=== PATIENT | female | born 1935 | race Caucasian/White ===

== ENCOUNTER 2017-04-29 17:01 | Inpatient (IN) | payer MEDICARE, OTHER ==
[2017-04-29] MEDS ORDERED: Ondansetron ODT 4 MG TAB PO PRN (17:45)
[2017-04-29] MEDS ORDERED: Acetaminophen 500 MG TAB PO PRN (17:49)
[2017-04-29] MEDS ORDERED: traMADol HCl 50 MG TAB PO PRN (17:49)
[2017-04-29 18:47] VITALS: BMI 31.9
[2017-04-29] MEDS: Acetaminophen/Codeine 30-300mg Tablet PO PRN (19:43)
[2017-04-29] MEDS: Apixaban 5 MG TAB PO SCH (20:35)
[2017-04-29] MEDS: Famotidine 20 MG TAB PO SCH (20:35)
[2017-04-29] MEDS ORDERED: SENNOSIDES 8.6 MG PO SCH (21:00)
[2017-04-29] MEDS ORDERED: Metoprolol Tartrate 50 MG TAB PO SCH (21:00)
[2017-04-30 05:37] LABS: Band 2 % (5-11); Eosinophils 1 % (0-10); Hemoglobin 9.4 g/dL (12.0-16.0); Lymphocytes 14 % (21-51); MDiff Complete? YES; Mean Corpuscular HGB CONC 32.6 g/dL (32.0-36.0); Mean Corpuscular Volume 98.1 fl (81.0-99.0); Mean Platelet Volume 6.1 fL (7.4-10.4); Monocytes 5 % (0-10); Neutrophil 75 % (42-75); PLT Morphology Comment Appears Adequate; Platelet Count 350 thou/uL (130-400); RBC Distribution Width 13.9 % (11.5-14.5); RBC Morphology Normal; Reactive Lymphocytes 3 % (0-10); Red Blood Cell (RBC) Count 2.94 mill/uL (4.20-5.40)
[2017-04-30 05:42] LABS: ALT (SGPT) 17 U/L (8-55); AST (SGOT) 19 U/L (5-34); Albumin 3.1 g/dL (3.4-4.8); Alkaline Phosphatase 72 U/L (40-150); Anion Gap 12 mmol/L (10-20); BUN (Urea Nitrogen) 12 mg/dL (9.8-20.1); Bilirubin, Total 0.6 mg/dL (0.2-1.2); Calc. Creatinine Clearance 86 mL/min (70-130); Carbon Dioxide 26 mmol/L (23-31); Chloride 99 mmol/L (98-107); Estimated GFR-MDRD 77; Globulin 2.5 g/dL (2.4-3.5); Glucose 106 mg/dL (83-110); Potassium 3.6 mmol/L (3.5-5.1); Protein, Total 5.6 g/dL (6.0-8.3); Sodium 133 mmol/L (136-145)
[2017-04-30 05:43] LABS: Manual Diff?? YES; White Blood Cell (WBC) Count 13.5 thou/uL (4.8-10.8)
[2017-04-30] MEDS ORDERED: Loratadine 10 MG TAB PO PRN (06:41)
[2017-04-30] MEDS ORDERED: ALPRAZolam 0.25 MG TAB PO PRN (06:42)
--- NOTE | 2017-04-30 08:17 | HP ---
HISTORY OF PRESENT ILLNESS: A very pleasant 81-year-old white female with a history of recent resec tion and replacement with Dacron graft with thoracic aneurysm by Dr. Clark Carvajal at [facility] in [place]. She had no complications except for recurrent atrial fibrillation despite treatment w ith Multaq and amiodarone. She did not have any renal dysfunction, congestive heart failure, or ang roya. She has had a long history of hypertension and new onset of atrial fibrillation in the last ye ar, which has been rate controlled and anticoagulated, but could not be cardioverted, and was found to have a significantly dilated left atrium. She had been doing fairly well on medications of metop rolol 50 mg twice daily, magnesium oxide 400 mg daily, valacyclovir 500 mg 2 tablets every 12 hours, Zaynab 180 mg daily, multivitamins, Tylenol as needed, and Voltaren Gel to the knees as needed as well as furosemide 40 mg daily, alprazolam 0.25 every 6 hours as needed, and Eliquis 5 mg twice ivan y. She was continued on these medicines postop and is [facility] for [facility] therapy . 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 She also has a history of cholecystectomy, tonsillectomy, laminectomy, hysterectomy, right total kne e replacement, ischemic bowel resection in 2015. 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 She also has the above-me ntioned history of hypertension and DJD. FAMILY MEDICAL HISTORY: Positive for her father with Parkinson's disease, coronary artery disease, and glaucoma; mother with coronary disease; both at age greater than 90. Sibling alive with gl aucoma and a son alive with hypertension. SOCIAL HISTORY: She lives alone. She is a nonsmoker. She is . ALLERGIES: She is allergic to DEMEROL that makes her feel woozy, headache. REVIEW OF SYSTEMS: HEENT: Somewhat agitated, but nervous, but no headaches or dizziness, change in vision or hearing, hoarseness or dysphagia. Pulmonary: She denies cough, sputum production, pneum onia, asthma, tuberculosis. Cardiovascular: She denies chest pain, orthopnea, paroxysmal nocturnal dyspnea. She has had some shortness of breath and edema prior to the surgery, now does have some e noel, but no real orthopnea, but is moving slowly secondary to sternal precautions. Gastrointestina l: She denies nausea, vomiting, diarrhea, constipation, abdominal pain. Genitourinary: She denies dysuria, hematuria, nocturia. Musculoskeletal: She denies stiffness. Does have significant roderick ess in her knees and shoulders. Genitourinary: Denies dysuria, hematuria, nocturia. Neurologic: Denies localized numbness or weakness in arms or extremities. PHYSICAL EXAMINATION: GENERAL: Patient is an elderly white female, alert, oriented, lucid, in no acute distress. VITAL SIGNS: Showed her to have blood pressure of 164/85, pulse 113, respirations 20, O2 saturation is 92%, afebrile. HEENT: Pupils are equal, round, and reactive to light and accommodation. Sclerae are anicteric. C onjunctivae are pale. Oral mucous membranes well hydrated. NECK: Supple. JVP is not elevated. Carotids 2+ and equal without bruits. LUNGS: Clear with some mild decreased breath sounds in the bases. CARDIAC EXAMINATION: Showed an irregularly regular rhythm. No gallops or murmurs. PMI in the fift h intercostal space midclavicular line. There is a healing midline sternotomy scar. ABDOMEN: Soft and nontender with no masses or organomegaly. SKIN/EXTREMITIES: Do show 2+ edema. No clubbing or cyanosis. There is crepitance and stiffness in the knees. NEUROLOGICAL: Shows no focal findings. LABORATORY DATA: Shows a white count 13,500, hematocrit 28, hemoglobin 9, sodium 133, potassium 3.6 , chloride 99, bicarbonate 26, BUN 12, creatinine 0.73, glucose 106, calcium 9.0, total bilirubin 0. 6, AST 19, ALT 17, protein 5.6, albumin 3.1. ASSESSMENT: A 81-year-old white female with a history of hypertension, atrial fibrillation, and a f inding of thoracic aneurysm, asymptomatic, who has undergone resection with no complications, and is transferred back for physical therapy and occupational therapy. She is under sternal precautions p er her cardiac surgeon. She is back on her routine medications of metoprolol for control of rate an d Eliquis for anticoagulation of her atrial fibrillation. She will be restarted back on her valacyc lovir, alprazolam, and we will have her furosemide increased to 40 twice daily from once daily to se e if we can diurese some of her postoperative edema.
[2017-04-30] MEDS ORDERED: Furosemide 40 MG TAB PO SCH (09:00)
[2017-04-30] MEDS ORDERED: Furosemide 20 MG TAB PO SCH (09:00)
[2017-04-30] MEDS: Furosemide 40 MG TAB PO SCH ×2 (09:41→13:35)
[2017-04-30] MEDS: Multivitamin W/ Minerals 1 TAB PO SCH (09:41)
[2017-04-30] MEDS: Famotidine 20 MG TAB PO SCH ×2 (09:42→21:53)
[2017-04-30] MEDS: Apixaban 5 MG TAB PO SCH ×2 (09:42→21:53)
[2017-04-30] MEDS: Polyethylene Glycol 3350 17 GM Packet PO SCH (09:43)
[2017-04-30] MEDS: FEXOFENADINE 180 MG PO SCH ×2 (12:35→20:16)
[2017-04-30] MEDS: Senokot S 8.6-50 MG TAB PO SCH (21:53)
--- NOTE | 2017-05-01 08:18 | PRG ---
DATE OF SERVICE: 05/01/2017 SUBJECTIVE: The patient is sitting up in the chair, feels better, rested better last night, has bee n cooperating with therapy, but is still having limitations secondary to tachycardia, tachypnea and hypoxemia with exertion. These are relieved quickly by rest and not associated with any chest pain. She has had no fever, chills or cough. OBJECTIVE: VITAL SIGNS: Temperature 98, pulse is 113, respirations 18, O2 sat is 94% at rest, but drops to 87% with exercise, blood pressure 127/70. LUNGS: Lungs show good breath sounds, no rales, rhonchi or wheezes. CARDIAC: Cardiac examination shows an irregular regular rhythm. SKIN AND EXTREMITIES: Skin and extremities show 3+ edema to the knees. No clubbing or cyanosis. The patient is urinating, but intake and output not being done at this time. ASSESSMENT: 1. Status post thoracic aortic aneurysm repair. No evidence of complications, healing well. 2. Persistent atrial fibrillation with limitation of exercise capability on metoprolol. 3. Fluid retention secondary to atrial fibrillation and diastolic congestive heart failure on furos emide 40 twice daily with good urine output, not being measured, but with persistent edema. PLAN: Strict intake and output. Repeat base met profile in the a.m. Continue Lasix 40 twice daily . Continue metoprolol 75 twice daily and may need to increase dose.
[2017-05-01] MEDS: Apixaban 5 MG TAB PO SCH ×2 (08:47→20:27)
[2017-05-01] MEDS: Famotidine 20 MG TAB PO SCH ×2 (08:47→20:27)
[2017-05-01] MEDS: Furosemide 40 MG TAB PO SCH ×2 (08:48→14:31)
[2017-05-01] MEDS: Multivitamin W/ Minerals 1 TAB PO SCH (08:48)
[2017-05-01] MEDS: Polyethylene Glycol 3350 17 GM Packet PO SCH (08:51)
--- NOTE | 2017-05-01 09:47 | RAD ---
PORTABLE CHEST: DATE: 05/01/17. PROVIDED CLINICAL HISTORY: Shortness of breath. FINDINGS: Comparison is made with the study dated 05/10/15. The cardiac silhouette appears enlarged. There i s opacity involving the right aspect of the mediastinum superiorly which appears similar to prior st udies. Median sternotomy changes are again seen. No focal consolidation, pleural fluid, or pneumot horax apparent. IMPRESSION: Stable radiographic appearance of the chest. POS: [facility]
[2017-05-01] MEDS: FEXOFENADINE 180 MG PO SCH (20:26)
[2017-05-01] MEDS: Senokot S 8.6-50 MG TAB PO SCH (20:27)
[2017-05-02 06:00] LABS: Anion Gap 13 mmol/L (10-20); BUN (Urea Nitrogen) 14 mg/dL (9.8-20.1); Calc. Creatinine Clearance 84 mL/min (70-130); Calcium 8.2 mg/dL (7.8-10.44); Carbon Dioxide 27 mmol/L (23-31); Chloride 100 mmol/L (98-107); Estimated GFR-MDRD 75; Glucose 94 mg/dL (83-110); Potassium 3.4 mmol/L (3.5-5.1); Sodium 137 mmol/L (136-145)
--- NOTE | 2017-05-02 09:19 | PRG ---
DATE OF SERVICE: 05/02/2017 SUBJECTIVE: The patient was sitting up in the chair, feels well. No shortness of breath or chest p ain. She had been cooperating well with therapy, still having some edema of her legs and is complai lurdes that there is too much salt in her diet. OBJECTIVE: VITAL SIGNS: Shows her blood pressure is 116/67, pulse 103 and irregular, respirations 20, O2 sats 94% on room air, afebrile. Chest x-ray yesterday showed stable cardiomegaly with right pleural effusion, minimal changes from p revious x-ray. LABORATORY: Sodium was 137, potassium down slightly at 3.4, chloride 100, bicarbonate 27, BUN is 14 , creatinine 0.75, glucose 94, calcium 8.2. SKIN AND EXTREMITIES: Show 2+ edema. LUNGS: Lungs appear to be clear with only decreased breath sounds in the right base, sternotomy inc ision healing well. CARDIAC: Shows an irregularly irregular rhythm. ASSESSMENT: 1. Stable atrial fibrillation with rate control and anticoagulation. 2. Resolving thoracic aortic aneurysm repair. 3. Stable peripheral edema. 4. Mild congestive heart failure. PLAN: 1. Continue furosemide 40 mg twice daily. 2. Continue metoprolol 75 twice daily. 3. Continue apixaban 5 twice daily. 4. Continue PT, OT. 5. Discontinue heart healthy diet and will start on strict low salt diet.
[2017-05-02] MEDS: Multivitamin W/ Minerals 1 TAB PO SCH (09:20)
[2017-05-02] MEDS: Famotidine 20 MG TAB PO SCH ×2 (09:20→20:47)
[2017-05-02] MEDS: Apixaban 5 MG TAB PO SCH ×2 (09:20→20:47)
[2017-05-02] MEDS: Furosemide 40 MG TAB PO SCH ×2 (09:20→14:10)
[2017-05-02] MEDS: Polyethylene Glycol 3350 17 GM Packet PO SCH (09:35)
[2017-05-02] MEDS: FEXOFENADINE 180 MG PO SCH (20:45)
[2017-05-02] MEDS: Senokot S 8.6-50 MG TAB PO SCH (20:47)
[2017-05-03 05:38] LABS: Hemoglobin 8.4 g/dL (12.0-16.0); Platelet Count 367 thou/uL (130-400)
[2017-05-03] MEDS: Multivitamin W/ Minerals 1 TAB PO SCH (09:12)
[2017-05-03] MEDS: Furosemide 40 MG TAB PO SCH ×2 (09:13→14:47)
[2017-05-03] MEDS: FEXOFENADINE 180 MG PO SCH ×2 (09:13→21:56)
[2017-05-03] MEDS: Apixaban 5 MG TAB PO SCH ×2 (09:13→21:51)
[2017-05-03] MEDS: Polyethylene Glycol 3350 17 GM Packet PO SCH (09:13)
[2017-05-03] MEDS: Famotidine 20 MG TAB PO SCH ×2 (09:13→21:51)
[2017-05-03] MEDS: Senokot S 8.6-50 MG TAB PO SCH (21:51)
[2017-05-04] MEDS: FEXOFENADINE 180 MG PO SCH ×3 (06:44→20:02)
[2017-05-04] MEDS: Multivitamin W/ Minerals 1 TAB PO SCH (08:53)
[2017-05-04] MEDS: Apixaban 5 MG TAB PO SCH ×2 (08:53→19:59)
[2017-05-04] MEDS: Furosemide 40 MG TAB PO SCH ×2 (08:53→13:54)
[2017-05-04] MEDS: Famotidine 20 MG TAB PO SCH ×2 (08:53→19:59)
[2017-05-04] MEDS: Polyethylene Glycol 3350 17 GM Packet PO SCH (08:54)
[2017-05-04 08:59] LABS: #Basophils 0.1 thou/uL (0.0-0.2); #Eosinphils 0.4 thou/uL (0.0-0.7); #Lymphocytes 1.7 thou/uL (1.20-3.40); #Monocytes 0.8 thou/uL (0.11-0.59); #Neutrophils 11.5 thou/uL (1.40-6.50); %Basophils 0.6 % (0.0-1.0); %Eosinophils 2.7 % (0.0-10.0); %Lymphocytes 11.7 % (21.0-51.0); %Monocytes 5.3 % (0.0-10.0); %Neutrophils 79.7 % (42.0-75.0); Hemoglobin 9.1 g/dL (12.0-16.0); Mean Corpuscular HGB CONC 33.4 g/dL (32.0-36.0); Mean Corpuscular Hemoglobin 32.4 pg (27.0-31.0); Mean Corpuscular Volume 97.1 fl (81.0-99.0); Mean Platelet Volume 5.7 fL (7.4-10.4); Platelet Count 415 thou/uL (130-400); RBC Distribution Width 14.9 % (11.5-14.5); Red Blood Cell (RBC) Count 2.81 mill/uL (4.20-5.40); White Blood Cell (WBC) Count 14.4 thou/uL (4.8-10.8)
[2017-05-04 09:12] LABS: Anion Gap 12 mmol/L (10-20); BUN (Urea Nitrogen) 10 mg/dL (9.8-20.1); Calc. Creatinine Clearance 80 mL/min (70-130); Carbon Dioxide 28 mmol/L (23-31); Chloride 100 mmol/L (98-107); Estimated GFR-MDRD 71; Glucose 108 mg/dL (83-110); Potassium 3.4 mmol/L (3.5-5.1); Sodium 137 mmol/L (136-145)
--- NOTE | 2017-05-04 17:36 | PRG ---
DATE OF SERVICE: 05/04/2017 SUBJECTIVE: The patient slept much better last night on her personal recliner, decreased back pain and leg pain. Has had no palpitations or chest pain. OBJECTIVE: VITAL SIGNS: Shows temperature 98, pulse 108, respirations 18, O2 sats 94%, blood pressure 96/51. LUNGS: Show decreased breath sounds in the bases, worse on the right. CARDIAC: Examination shows an irregular rhythm. SKIN AND EXTREMITIES: Show persistent 1+ edema. Intake and output shows 1230 in and 2350 out. Alfie ght is stable at 192. LABORATORY DATA: Shows hemoglobin did decrease somewhat to 8.4 and hematocrit 24. Creatinine, lu bobo, stable at 0.74. GFR 76. ASSESSMENT: Resolving thoracic aortic aneurysm repair, stable; hypertension, slightly low today; pe rsistent atrial fibrillation with rate control and anticoagulation; persistent edema with normal alexandrea al function, slightly worsened hemoglobin. PLAN: Repeat CBC, base met profile and BNP in the a.m. Continue to stress physical conditioning. Continue weight control and anticoagulation of atrial fibrillation.
[2017-05-04] MEDS: Senokot S 8.6-50 MG TAB PO SCH (19:59)
[2017-05-05 05:31] LABS: Platelet Count 414 thou/uL (130-400)
--- NOTE | 2017-05-05 08:16 | PRG ---
DATE OF SERVICE: 05/04/2017 SUBJECTIVE: The patient feels much better, up out of the chair and is sleeping well in her recliner with decreased back pain, still having some edema of her legs, but is ambulating much better with n o chest pain or shortness of breath. OBJECTIVE: VITAL SIGNS: Temperature 97.4, pulse still 114, respirations 18, O2 sats 93%, blood pressure 105/54 . LABORATORY: Laboratory show white count still elevated at 14,400, hematocrit 27, hemoglobin 9. LUNGS: Lungs show decreased breath sounds in the right base. CARDIAC: Cardiac examination shows an irregular regular rhythm. SKIN AND EXTREMITIE: Skin and extremities show 1+ edema. Midline sternotomy incision healing well. ASSESSMENT: 1. Resolving thoracic aortic aneurysm repair. 2. Right pleural effusion with persistent leukocytosis with no evidence of infection, with no fever , cough, chest pain, shortness of breath. 3. Persistent atrial fibrillation with minimal rate control with metoprolol and will restart back o n amiodarone to control tachycardia as increased beta jimena may decrease blood pressure less than 100. PLAN: 1. Amiodarone 200 mg daily. 2. Continue PT, OT. 3. Repeat CBC, chest x-ray, basic metabolic profile.
[2017-05-05] MEDS: Apixaban 5 MG TAB PO SCH ×2 (09:09→20:03)
[2017-05-05] MEDS: Furosemide 40 MG TAB PO SCH ×2 (09:10→14:20)
[2017-05-05] MEDS: Famotidine 20 MG TAB PO SCH ×2 (09:10→20:03)
[2017-05-05] MEDS: Polyethylene Glycol 3350 17 GM Packet PO SCH (09:10)
[2017-05-05] MEDS: Multivitamin W/ Minerals 1 TAB PO SCH (09:10)
[2017-05-05 09:28] LABS: #Basophils 0.1 thou/uL (0.0-0.2); #Eosinphils 0.4 thou/uL (0.0-0.7); #Lymphocytes 2.6 thou/uL (1.20-3.40); #Monocytes 0.6 thou/uL (0.11-0.59); #Neutrophils 9.8 thou/uL (1.40-6.50); %Basophils 0.8 % (0.0-1.0); %Eosinophils 2.9 % (0.0-10.0); %Lymphocytes 19.2 % (21.0-51.0); %Monocytes 4.7 % (0.0-10.0); %Neutrophils 72.4 % (42.0-75.0); Mean Corpuscular HGB CONC 31.8 g/dL (32.0-36.0); Mean Corpuscular Hemoglobin 31.3 pg (27.0-31.0); Mean Corpuscular Volume 98.5 fl (81.0-99.0); Mean Platelet Volume 5.7 fL (7.4-10.4); Platelet Count 412 thou/uL (130-400); RBC Distribution Width 15.1 % (11.5-14.5); Red Blood Cell (RBC) Count 2.87 mill/uL (4.20-5.40); White Blood Cell (WBC) Count 13.6 thou/uL (4.8-10.8)
[2017-05-05 09:33] LABS: Anion Gap 15 mmol/L (10-20)
[2017-05-05] MEDS ORDERED: traMADol HCl 50 MG TAB PO PRN (10:08)
[2017-05-05 15:36] LABS: #Basophils 0.1 thou/uL (0.0-0.2)
[2017-05-05 15:44] LABS: #Eosinphils 0.2 thou/uL (0.0-0.7); #Lymphocytes 1.5 thou/uL (1.20-3.40); #Monocytes 0.7 thou/uL (0.11-0.59); #Neutrophils 13.6 thou/uL (1.40-6.50); %Basophils 0.5 % (0.0-1.0); %Eosinophils 1.5 % (0.0-10.0); %Lymphocytes 9.4 % (21.0-51.0); %Monocytes 4.6 % (0.0-10.0); Hemoglobin 9.3 g/dL (12.0-16.0); Mean Corpuscular HGB CONC 32.8 g/dL (32.0-36.0); Mean Corpuscular Volume 97.5 fl (81.0-99.0); Mean Platelet Volume 5.5 fL (7.4-10.4); Platelet Count 455 thou/uL (130-400); RBC Distribution Width 14.7 % (11.5-14.5); Red Blood Cell (RBC) Count 2.92 mill/uL (4.20-5.40); White Blood Cell (WBC) Count 16.2 thou/uL (4.8-10.8)
[2017-05-05 16:00] LABS: BUN (Urea Nitrogen) 9 mg/dL (9.8-20.1); Calc. Creatinine Clearance 80 mL/min (70-130); Calcium 8.4 mg/dL (7.8-10.44); Carbon Dioxide 26 mmol/L (23-31); Chloride 100 mmol/L (98-107); Estimated GFR-MDRD 71; Glucose 97 mg/dL (83-110); Potassium 3.6 mmol/L (3.5-5.1); Sodium 137 mmol/L (136-145)
--- NOTE | 2017-05-05 17:25 | RAD ---
PA AND LATERAL CHEST: History: Recent open heart surgery. Cough. Sore throat. Comparison: 05-01-17 FINDINGS/IMPRESSION: There are changes of median sternotomy. The heart size is borderline. There are small bilateral pleu ral effusions. There are bibasilar atelectatic changes/mild infiltrates. There is no viji pulmonary edema. There are post op changes of right shoulder arthroplasty. POS: [facility]
[2017-05-05] MEDS: FEXOFENADINE 180 MG PO SCH (20:01)
[2017-05-05] MEDS: Amoxicillin/Potassium Clav 875 MG TAB PO SCH (20:03)
[2017-05-05] MEDS: Senokot S 8.6-50 MG TAB PO SCH (20:03)
[2017-05-05 21:31] LABS: Bilirubin Negative (Negative); Blood, Urine Trace (Negative); Clarity Clear (Clear); Glucose, Urine (Dipstick) Negative (Negative); Leukocyte Small (Negative); Nitrite Negative (Negative); Protein, Urine (Dipstick) Negative (Neg-Trace); Urobilinogen 0.2 mg/dL (0.2-1.0)
[2017-05-05 22:14] LABS: Bacteria/HPF 2+ HPF (None Seen)
--- NOTE | 2017-05-06 07:55 | PRG ---
DATE OF SERVICE: 05/06/2017 SUBJECTIVE: The patient feels somewhat weak today with a scratchy sore throat yesterday and myalgia s. She was evaluated yesterday afternoon where they began with a chest x-ray which showed no real i nfiltrates, pulmonary edema and only the old right pleural effusion and adhesion. Urinalysis; [facility], did show pyuria and bacteriuria and white count was elevated at 16,200, hematocrit 28, hemoglobi n 9. She had no nausea, vomiting or diarrhea. She had only minimal cough. She was started on Augm entin and states that she feels somewhat better. Culture is pending on her urine. She had been con tinued on incentive spirometry. OBJECTIVE: VITAL SIGNS: Shows vital signs show temperature 97.5, pulse 107, respirations 18, O2 sats 95%, bloo d pressure 95/61. LUNGS: Lungs show increased breath sounds with decreased rhonchi, no rales or wheezes. CARDIAC: Cardiac examination shows an irregular regular rhythm. Incision is healing well and sutur es at the thoracotomy site will be removed where the chest tube was placed and the pump tubes were p laced. ASSESSMENT: Resolving thoracic aneurysm repair with leukocytosis, possibly due to urinary tract inf ection, has no evidence of pulmonary or cardiac infection. PLAN: We will continue on Augmentin, await results of urine culture. Continue to stress incentive spirometry.
[2017-05-06] MEDS: Famotidine 20 MG TAB PO SCH ×2 (08:58→20:18)
[2017-05-06] MEDS: Apixaban 5 MG TAB PO SCH ×2 (08:58→20:18)
[2017-05-06] MEDS: Furosemide 40 MG TAB PO SCH ×2 (08:58→14:20)
[2017-05-06] MEDS: Multivitamin W/ Minerals 1 TAB PO SCH (08:58)
[2017-05-06] MEDS: Amoxicillin/Potassium Clav 875 MG TAB PO SCH ×2 (08:58→20:17)
[2017-05-06] MEDS: Acetaminophen/Codeine 30-300mg Tablet PO PRN ×2 (08:59→15:30)
[2017-05-06] MEDS: Polyethylene Glycol 3350 17 GM Packet PO SCH ×2 (08:59→09:11)
[2017-05-06] MEDS: FEXOFENADINE 180 MG PO SCH (20:17)
[2017-05-06] MEDS: Senokot S 8.6-50 MG TAB PO SCH (20:18)
[2017-05-07 05:39] LABS: Hemoglobin 8.5 g/dL (12.0-16.0); Platelet Count 408 thou/uL (130-400)
[2017-05-07] MEDS: Amoxicillin/Potassium Clav 875 MG TAB PO SCH ×2 (08:16→20:39)
[2017-05-07] MEDS: Polyethylene Glycol 3350 17 GM Packet PO SCH (08:17)
[2017-05-07] MEDS: Furosemide 40 MG TAB PO SCH ×2 (08:19→14:15)
[2017-05-07] MEDS: Famotidine 20 MG TAB PO SCH ×2 (08:19→20:39)
[2017-05-07] MEDS: Multivitamin W/ Minerals 1 TAB PO SCH (08:19)
[2017-05-07] MEDS: Apixaban 5 MG TAB PO SCH ×2 (08:19→20:39)
[2017-05-07] MEDS: Senokot S 8.6-50 MG TAB PO SCH (20:40)
[2017-05-07] MEDS: FEXOFENADINE 180 MG PO SCH (20:40)
--- NOTE | 2017-05-08 07:26 | PRG ---
DATE OF SERVICE: 05/08/2017 SUBJECTIVE: The patient feels much better with decreased cough, myalgias, increased strength and de creased edema and increased exercise tolerance. OBJECTIVE: VITAL SIGNS: Temperature is 97, pulse 108, respirations 20, O2 sats 96% on room air, blood pressure 125/75. LABORATORY: Hematocrit is 26, hemoglobin 8.5, platelet count 408, creatinine 0.76. The patient is going to the bathroom on facility and is asking when she can be discharged home. She did walk 246 feet. ASSESSMENT: 1. Resolving thoracic aortic aneurysm repair. 2. Stable atrial fibrillation with fair rate control on amiodarone and metoprolol, but somewhat lab ile blood pressures and adequate anticoagulation. PLAN: 1. Continue furosemide 40 twice daily, Apixaban 5 twice daily, amiodarone 200 daily, metoprolol 75 twice daily. 2. Follow up with Cardiology at [facility] 3. Most likely discharge in the next 1-2 days.
--- NOTE | 2017-05-08 08:12 | PRG ---
DATE OF SERVICE: 05/08/2017 SUBJECTIVE: The patient feels well, sitting up in a chair, rested well last night, and walking back and forth the bathroom and cooperating well with therapy. I feel she should be ready for discharge next week. OBJECTIVE: VITAL SIGNS: Shows temperature is 98.2, pulse 99, respirations 18, O2 sat is 92% on room air, blood pressure 100/58. LUNGS: Show minimal decreased breath sounds in the bases. CARDIAC EXAMINATION: Shows an irregularly irregular rhythm. SKIN AND EXTREMITIES: Show a 1+ nonpitting edema. Sternotomy incision healed well. ASSESSMENT: 1. Resolving thoracic aortic aneurysm repair. 2. Chronic atrial fibrillation with mild tachycardia with compensated diastolic congestive heart fa ilure. 3. Improving deconditioning. PLAN: 1. Continue PT/OT and discuss discharge planning with them. 2. Arrange followup with Dr. Evan Perez, Cardiology at [facility]. 3. Continue medications as ordered.
[2017-05-08] MEDS: Amoxicillin/Potassium Clav 875 MG TAB PO SCH ×2 (09:10→21:17)
[2017-05-08] MEDS: Polyethylene Glycol 3350 17 GM Packet PO SCH (09:12)
[2017-05-08] MEDS: Furosemide 40 MG TAB PO SCH ×2 (09:12→14:44)
[2017-05-08] MEDS: Apixaban 5 MG TAB PO SCH ×2 (09:12→21:17)
[2017-05-08] MEDS: Famotidine 20 MG TAB PO SCH ×2 (09:12→21:17)
[2017-05-08] MEDS: Multivitamin W/ Minerals 1 TAB PO SCH (09:12)
[2017-05-08] MEDS: FEXOFENADINE 180 MG PO SCH (21:16)
[2017-05-08] MEDS: Senokot S 8.6-50 MG TAB PO SCH (21:17)
[2017-05-09 05:08] LABS: Hemoglobin 8.4 g/dL (12.0-16.0)
[2017-05-09] MEDS: Polyethylene Glycol 3350 17 GM Packet PO SCH (09:37)
[2017-05-09] MEDS: Apixaban 5 MG TAB PO SCH ×2 (09:38→20:32)
[2017-05-09] MEDS: Amoxicillin/Potassium Clav 875 MG TAB PO SCH (09:38)
[2017-05-09] MEDS: Furosemide 40 MG TAB PO SCH ×2 (09:38→14:34)
[2017-05-09] MEDS: Famotidine 20 MG TAB PO SCH ×2 (09:38→20:32)
[2017-05-09] MEDS: Multivitamin W/ Minerals 1 TAB PO SCH (09:39)
[2017-05-09 10:14] LABS: Red Blood Cell (RBC) Count 2.72 mill/uL (4.20-5.40); White Blood Cell (WBC) Count 9.5 thou/uL (4.8-10.8)
[2017-05-09 10:15] LABS: Mean Corpuscular HGB CONC 31.8 g/dL (32.0-36.0); Mean Corpuscular Hemoglobin 30.8 pg (27.0-31.0); Mean Platelet Volume 5.3 fL (7.4-10.4); Platelet Count 423 thou/uL (130-400); RBC Distribution Width 14.8 % (11.5-14.5)
[2017-05-09 10:16] LABS: #Basophils 0.1 thou/uL (0.0-0.2); #Eosinphils 0.4 thou/uL (0.0-0.7); #Monocytes 0.8 thou/uL (0.11-0.59); #Neutrophils 6.2 thou/uL (1.40-6.50); %Basophils 0.7 % (0.0-1.0); %Eosinophils 4.1 % (0.0-10.0); %Lymphocytes 20.9 % (21.0-51.0); %Monocytes 8.5 % (0.0-10.0); %Neutrophils 65.8 % (42.0-75.0)
--- NOTE | 2017-05-09 10:24 | PRG ---
DATE OF SERVICE: 05/09/2017 SUBJECTIVE: The patient states she has increased cough, feels somewhat worse today, but is cooperat ing with therapy and has no shortness of breath or chest pain. OBJECTIVE: VITAL SIGNS: Shows temperature is 97, pulse 94, respirations 18, O2 sats 92% on room air, blood pre ssure 111/65. LUNGS: Do show a few more rhonchi in both bases. CARDIAC: Examination shows an irregularly irregular rhythm. SKIN AND EXTREMITIES: Show stable nondependent edema. ABDOMEN: Soft and nontender. ASSESSMENT: 1. Resolving thoracic aortic aneurysm repair. 2. Stable atrial fibrillation with adequate rate control and vital signs. 3. Recurrent cough and leukocytosis on oral amoxicillin. 4. Urine culture does show gram negative stormy also. PLAN: Change amoxicillin to Cipro 250 twice daily. Obtain repeat chest x-ray and repeat CBC.
--- NOTE | 2017-05-09 16:09 | RAD ---
PA AND LATERAL VIEWS CHEST: 05/09/17 HISTORY: Leukocytosis and cough. FINDINGS: Comparison made to exam of 05/05/17. Changes of median sternotomy again seen. The heart size is borderline but stable. Bibasilar atelecta tic changes, mild infiltrates with accompanying small bilateral pleural effusions are stable. There are degenerative changes ins the spine. Postop changes of right shoulder arthroplasty are again seen . IMPRESSION: Stable exam. POS: [facility]
[2017-05-09] MEDS: Cipro 250 MG TAB PO SCH (20:31)
[2017-05-09] MEDS: Senokot S 8.6-50 MG TAB PO SCH (20:32)
[2017-05-09] MEDS: FEXOFENADINE 180 MG PO SCH (20:35)
[2017-05-09] MEDS: Acetaminophen/Codeine 30-300mg Tablet PO PRN (20:35)
[2017-05-10] MEDS: Cipro 250 MG TAB PO SCH ×2 (05:51→21:28)
[2017-05-10] MEDS: Famotidine 20 MG TAB PO SCH ×2 (08:41→21:29)
[2017-05-10] MEDS: Furosemide 40 MG TAB PO SCH ×2 (08:41→13:19)
[2017-05-10] MEDS: Apixaban 5 MG TAB PO SCH ×2 (08:41→21:29)
[2017-05-10] MEDS: Polyethylene Glycol 3350 17 GM Packet PO SCH (08:42)
[2017-05-10] MEDS: Acetaminophen/Codeine 30-300mg Tablet PO PRN (08:42)
[2017-05-10] MEDS: Multivitamin W/ Minerals 1 TAB PO SCH (08:42)
[2017-05-10] MEDS: Senokot S 8.6-50 MG TAB PO SCH (21:29)
[2017-05-10] MEDS: FEXOFENADINE 180 MG PO SCH (21:31)
[2017-05-11 05:19] LABS: Platelet Count 464 thou/uL (130-400)
[2017-05-11 05:38] LABS: Calc. Creatinine Clearance 85 mL/min (70-130); Estimated GFR-MDRD 76
[2017-05-11] MEDS: Cipro 250 MG TAB PO SCH ×2 (06:29→20:01)
[2017-05-11] MEDS: Amoxicillin/Potassium Clav 875 MG TAB PO SCH ×2 (09:20→20:56)
[2017-05-11] MEDS: Apixaban 5 MG TAB PO SCH ×2 (09:20→20:56)
[2017-05-11] MEDS: Famotidine 20 MG TAB PO SCH ×2 (09:21→20:55)
[2017-05-11] MEDS: Multivitamin W/ Minerals 1 TAB PO SCH (09:21)
[2017-05-11] MEDS: Polyethylene Glycol 3350 17 GM Packet PO SCH (09:21)
[2017-05-11] MEDS: Furosemide 40 MG TAB PO SCH ×2 (09:22→09:33)
--- NOTE | 2017-05-11 09:37 | PRG ---
DATE OF SERVICE: 05/10/2017 SUBJECTIVE: Patient feels better, decreased cough, increased strength. No fever, chills, nausea, o r vomiting. OBJECTIVE: Shows temperature 97, pulse 90, respirations 18, O2 sats 94%, blood pressure 126/60. Wh ite count yesterday was 9500, hematocrit 26, hemoglobin 8.4. Urinalysis did show 11-20 white cells and culture revealed E. coli, which was sensitive to Augmentin, but resistant to Cipro; however, the patient also had 2 other organisms in the urine culture. Lungs are clear. Cardiac examination is regular rhythm. Abdomen is soft and nontender. ASSESSMENT: 1. Urinary tract infection improving with Cipro and Augmentin. 2. Resolving thoracic aortic aneurysm repair. 3. Stable atrial fibrillation with rate control and anticoagulation. PLAN: Continue Augmentin and Cipro. Follow up with Cardiology next week as an outpatient.
[2017-05-11 09:45] LABS: Anion Gap 14 mmol/L (10-20); BUN (Urea Nitrogen) 11 mg/dL (9.8-20.1); Calcium 8.7 mg/dL (7.8-10.44); Carbon Dioxide 27 mmol/L (23-31); Chloride 98 mmol/L (98-107); Glucose 107 mg/dL (83-110); Potassium 3.4 mmol/L (3.5-5.1); Sodium 136 mmol/L (136-145)
--- NOTE | 2017-05-11 16:19 | PRG ---
DATE OF SERVICE: 05/11/2017 SUBJECTIVE: The patient states she still feels weak, myalgias today, but feels better than yesterda y. He has had mild increase in shortness of breath, no real change. OBJECTIVE: VITAL SIGNS: Shows her blood pressure is 116/56, temperature 97, pulse 94, respirations 20. LUNGS: Clear. SKIN AND EXTREMITIES: Showed no pitting edema. Cardiac examination shows an irregularly irregular rhythm. LABORATORY DATA: Hemoglobin 9, hematocrit 28, and white count 9500. Potassium 3.6, BUN, 9, BNP 719 . Intake and output shows 2592 in and output not measured. ASSESSMENT: 1. Increasing weakness, possibly due to dehydration from diuretic. Appears to have no excessive fl uid 2. Urinary tract infection sensitive to Augmentin and Cipro, will continue. 3. Resolving thoracic aortic aneurysm repair. PLAN: Decrease furosemide to 40 mg daily. Repeat basic metabolic profile today. Continue Augmenti n and Cipro.
[2017-05-11] MEDS: Senokot S 8.6-50 MG TAB PO SCH (20:56)
[2017-05-11] MEDS: FEXOFENADINE 180 MG PO SCH (20:59)
[2017-05-12] MEDS: Cipro 250 MG TAB PO SCH (06:32)
[2017-05-12] MEDS: Multivitamin W/ Minerals 1 TAB PO SCH (08:50)
[2017-05-12] MEDS: Amoxicillin/Potassium Clav 875 MG TAB PO SCH (08:50)
[2017-05-12] MEDS: Famotidine 20 MG TAB PO SCH ×2 (08:50→21:25)
[2017-05-12] MEDS: Furosemide 40 MG TAB PO SCH (08:51)
[2017-05-12] MEDS: Apixaban 5 MG TAB PO SCH ×2 (08:51→21:25)
[2017-05-12] MEDS: Polyethylene Glycol 3350 17 GM Packet PO SCH (08:51)
--- NOTE | 2017-05-12 18:25 | PRG ---
DATE OF SERVICE: 05/12/2017 SUBJECTIVE: The patient is sitting up in chair, visiting her friends and states that she feels bett er. No myalgias, but has had some increased edema and requested increase furosemide today, having n o shortness of breath, fever, chills or cough. Physical Therapy states that she is independent walk ing all over the hospital with a walker and is ready to be discharged. OBJECTIVE: VITAL SIGNS: Blood pressure 127/57, O2 sats 95%, pulse is 102, O2 sats 96% on room air. LUNGS: Clear. CARDIAC EXAMINATION: Shows an irregularly irregular rhythm. ABDOMEN: Soft and nontender. SKIN: Does show 1-2+ edema. ASSESSMENT: 1. Thoracic aortic aneurysm repair healing well. 2. Chronic atrial fibrillation with rate control on anticoagulation. 3. Mild decompensation of diastolic heart failure, on Lasix 40 daily and we will increase to twice daily. 4. Hypokalemia. We will start on potassium chloride 10 twice daily. 5. Urinary tract infection with inability to tolerate Augmentin because of size and was sensitive t o Macrodantin, we will start on this. PLAN: Macrodantin 100 twice daily, KCl 10 mEq twice daily, increase furosemide 40 twice daily, disc ontinue Augmentin. Plan for discharge in the next 1-2 days.
[2017-05-12] MEDS: FEXOFENADINE 180 MG PO SCH (21:23)
[2017-05-12] MEDS: Senokot S 8.6-50 MG TAB PO SCH (21:25)
[2017-05-12] MEDS: Nitrofurantoin Macrocrystal 50 MG CAP PO SCH (21:25)
[2017-05-13] MEDS ORDERED: guaiFENesin/Codeine Phosphate 200 mg/20 mg 10 ml UD Cup PO PRN (07:06)
[2017-05-13] MEDS ORDERED: Potassium Chloride 10 MEQ TAB PO SCH (08:00)
[2017-05-13 08:45] VITALS: BP 129/78; TEMP 99
[2017-05-13] MEDS ORDERED: Furosemide 40 MG TAB PO SCH (09:00)
[2017-05-13] MEDS: Famotidine 20 MG TAB PO SCH (09:33)
[2017-05-13] MEDS: Nitrofurantoin Macrocrystal 50 MG CAP PO SCH (09:34)
[2017-05-13] MEDS: Apixaban 5 MG TAB PO SCH (09:34)
[2017-05-13] MEDS: Multivitamin W/ Minerals 1 TAB PO SCH (09:34)
[2017-05-13] MEDS: Polyethylene Glycol 3350 17 GM Packet PO SCH (09:35)
== END 2017-05-13 11:00 | disposition home or self-care (01) | DRG 299 ==
LOC: NAV ACUTE 17:01
PROVIDERS: ADMIT Internal Medicine; ATTEND Internal Medicine
DX: I71.2 Thoracic aortic aneurysm, without rupture (principal); I50.33 Acute on chronic diastolic (congestive) heart failure; J90 Pleural effusion, not elsewhere classified; I48.1 Persistent atrial fibrillation; I11.0 Hypertensive heart disease with heart failure; I48.2 Chronic atrial fibrillation; E87.6 Hypokalemia; M79.1 Myalgia; Z79.01 Long term (current) use of anticoagulants; Z96.611 Presence of right artificial shoulder joint; Z96.651 Presence of right artificial knee joint; Z88.5 Allergy status to narcotic agent; Z82.49 Family history of ischemic heart disease and other diseases of the circulatory system; Z83.511 Family history of glaucoma; Z82.0 Family history of epilepsy and other diseases of the nervous system
CPT/HCPCS: 36415; 71010; 71020; 80048; 80053; 81001; 82565; 83880; 85014; 85018; 85025; 85049; 87077; 87086; 87186; G8978-GP-CJ; G8979-GP-CI